=== PATIENT | male | born 1990 | race Two or more races ===

== ENCOUNTER 2021-01-28 19:25 | Emergency (ER) | payer MEDICAID, OTHER ==
[~2021-01-28] VITALS: Ht 175.3 cm; Wt 83.5 kg
[2021-01-28 21:17] VITALS: BP 191/71
== END 2021-01-28 21:47 | disposition home or self-care (01) ==
LOC: ER 19:27
DX: R51.9 Headache, unspecified (principal); R22.0 Localized swelling, mass and lump, head; W18.39XA Other fall on same level, initial encounter; Y93.89 Activity, other specified; Y92.89 Other specified places as the place of occurrence of the external cause; Y99.8 Other external cause status
CPT/HCPCS: 70450; 72125

== ENCOUNTER 2021-07-27 20:51 | Emergency (ER) | payer MEDICAID ==
[~2021-07-27] VITALS: Ht 175.3 cm; Wt 78.0 kg
[2021-07-28 02:07] VITALS: BP 111/54
== END 2021-07-28 02:21 | disposition home or self-care (01) ==
LOC: EDBD 20:51 → ER 20:51
DX: M62.81 Muscle weakness (generalized) (principal)
CPT/HCPCS: 93005

== ENCOUNTER 2025-01-01 00:41 | Emergency (ER) | payer MEDICAID, OTHER ==
[~2025-01-01] VITALS: Ht 175.3 cm; Wt 77.3 kg
[2025-01-01] MEDS: ALBUTEROL SULF 2.5 MG/0.5ML(0.5%) NEB SOLN NEB ONE (01:08)
[2025-01-01] MEDS: IPRATROPIUM BROM 0.5 MG/2.5ML INH SOL NEB ONE (01:08)
--- NOTE | 2025-01-01 01:53 | DVH ---
EXAM: XY CHEST PORTABLE CLINICAL HISTORY: Shortness of breath TECHNIQUE: Single frontal view of the chest WID: COMPARISON: None FINDINGS: Lines and tubes: Prior median sternotomy. Chest: The heart size and pulmonary vasculature is within normal limits. No pleural effusion, pneumothorax, or consolidation. The osseous structures are grossly intact. IMPRESSION: No acute cardiopulmonary abnormality.
[2025-01-01] MEDS ORDERED: ALBU108A5 IN (02:05)
--- NOTE | 2025-01-01 02:05 | ED.PDOC ---
History of Present Illness HPI Comments This patient is a pleasant 34-year-old male who arrives the ED today for evaluation of shortness a breath concerns for several weeks now. Patient denies any history of asthma or intrapulmonary concerns. Patient states that he has felt like he has not been able to take a deep breath and when he does, states he feels like his lungs are restricted. Patient denies any recent chemical or toxin exposure. Patient denies any fever nausea or vomiting. Vital signs were stable on arrival and patient was satting at 98% on room air. Chief Complaint: Shortness of Breath Time Seen by MD: 00:41 Reviewed Notes: Nurses Notes Allergies: Coded Allergies: NO KNOWN ALLERGIES (Unverified , 01/28/21) Information Source: Patient Mode of Arrival: Ambulatory Severity: Mild Timing: Weeks Duration: Intermittent Prehospital treatment: None Past Medical History PAST MEDICAL HISTORY: Denies Surgical History: Denies all surgeries Family History Family History: Reviewed,noncontributory to illness, No family hx of Cancer, No family hx of DM, No family hx of Heart justin, No family hx of HTN, No family hx ofKidney justin, No family hx of Liver justin, No family hx of Lung justin, No family hx of Stroke Social History Smoker: Non-Smoker Alcohol: Denies ETOH Use Drugs: Denies Drug Use Lives In: Home Constitutional: denies: chills, diaphoresis, fatigue, fever, malaise, sweats, weakness, others EENTM: denies: blurred vision, double vision, ear bleeding, ear discharge, ear drainage, ear pain, ear ringing, eye pain, eye redness, hearing loss, mouth pain, mouth swelling, nasal discharge, nose bleeding, nose congestion, nose pain, photophobia, tearing, throat pain, throat swelling, voice changes, others Respiratory: reports: shortness of breath; denies: cough, hemoptysis, orthopnea, SOB at rest, SOB with excertion, stridor, wheezing, others Cardiovascular: denies: chest pain, dizzy spells, diaphoresis, Dyspnea on exertion, edema, irregular heart beat, left arm pain, lightheadedness, palpitations, PND, syncope, others Gastrointestinal: denies: abdomen distended, abdominal pain, blood streaked bowels, constipated, diarrhea, dysphagia, difficulty swallowing, hematemesis, melena, nausea, poor appetite, poor fluid intake, rectal bleeding, rectal pain, vomiting, others Genitourinary: denies: burning, dysuria, flank pain, frequency, hematuria, incontinence, penile discharge, penile sore, pain, testicle pain, testicle swelling, urgency, others Neurological: denies: dizziness, fainting, headache, left sided numbness, left sided weakness, numbness, paresthesia, pre-existing deficit, right sided numbness, right sided weakness, seizure, speech problems, tingling, tremors, weakness, others Musculoskeletal: denies: back pain, gout, joint pain, joint swelling, muscle pain, muscle stiffness, neck pain, others Integumetry: denies: bruises, change in color, change in hair/nails, dryness, laceration, lesions, lumps, rash, wounds, others Allergic/Immunocompromised: denies: Difficulty Healing, Frequent Infections, Hives, Itching, others Hematologic/Lymphatic: denies: anemia, blood clots, easy bleeding, easy bruising, swollen glands, others Endocrine: denies: excessive hunger, excessive sweating, excessive thirst, excessive urination, flushing, intolerance to cold, intolerance to heat, unexplained weight gain, unexplained weight loss, others Psychiatric: denies: anxiety, bipolar disorder, depression, hopeless, panic disorder, schizophrenia, sleepless, suicidal, others Physical Exam General Appearance: Mild Distress (Moderate distress due to shortness a breath concerns and anxiety related to that concern.), Normal HEENT: Normal ENT Inspection, Pharynx Normal, TMs Normal Neck: Full Range of Motion, Non-Tender, Normal, Normal Inspection Respiratory: Chest Non-Tender, Lungs Clear, No Accessory Muscle Use, No Respiratory Distress, Normal Breath Sounds, Other (Unremarkable auscultation bilateral lung escobar.) Cardiovascular: No Edema, No JVD, No Murmur, No Gallop, Normal Peripheral Pulses, Regular Rate/Rhythm Breast Exam: Deferred Gastrointestinal: No Organomegaly, Non Tender, No Pulsatile Mass, Normal Bowel Sounds, Soft Genitalia: Deferred Pelvic: Deferred Rectal: Deferred Extremities: No calf tenderness, Normal capillary refill, Normal inspection, Normal range of motion, Non-tender, No pedal edema Neurologic: Alert, No Motor Deficits, Normal Affect, Normal Mood, No Sensory Deficits Cerebellar Function: NOT DONE Reflexes: NOT DONE Skin: Dry, Normal Color, Warm Lymphatic: No Adenopathy Was a procedure done? Was a procedure done?: No Differential Dx Considerations may include: Pneumonia, asthma, reactive airway disease, pulmonary neoplasm X-Ray, Labs, Meds, VS Vital Signs Date Time Temp Pulse Resp B/P (MAP) Pulse Ox O2 Delivery O2 Flow Rate FiO2 01/01/25 01:08 18 98 Room Air* 0 21 01/01/25 00:59 61 01/01/25 00:42 98.2 63 16 137/82 97 98.2 Current Medications Medications (Trade) Dose Ordered Sig/Floridalma Route Start Time Stop Time Status Last Admin Albuterol (Ventolin Medneb) 2.5 mg ONCE ONCE NEB 01/01/25 01:00 01/01/25 01:01 DC 01/01/25 01:08 Ipratropium [place] (Atrovent Medneb) 0.5 mg ONCE ONCE NEB 01/01/25 01:00 01/01/25 01:01 DC 01/01/25 01:08 Dexamethasone Sodium Phosphate (Decadron Injection) 10 mg ONCE ONCE IM 01/01/25 01:00 01/01/25 01:01 DC 01/01/25 01:55 X-Ray, Labs, Meds, VS Comment All studies performed the ED were evaluated by me personally. Imaging studies were unremarkable for any acute intrapulmonary concerns. Patient had good relief of symptoms status post medication dispensed. Advised patient that if his symptoms continue, he will need to follow up with the primary care provider for continued evaluation and management. Time of 1ST Reevaluation: 02:03 Reevaluation 1ST: Improved Consultation: PCP Patient Education/Counseling: Diagnosis, Treatment Family Education/Counseling: Diagnosis, Treatment SEPSIS Sepsis Screen Date sepsis recognized/suspect: Jan 01, 2025 Time Sepsis recognized/suspect: 004 Recent Procedure: No On Antibiotic Therapy: No Respiratory Rate >20: No Heart Rate >90: No Temp<36 C (96.8 F) or >38.3 C: No SBP <90 or MAP <65 mmHG: No New Acute Mental Status Change: No Is the patient on CPAP, BIPAP,: No Physician Orders Chest Portable (01/01/25 00:53) Electrocardigram (01/01/25 01:05) Electrocardigram (01/01/25 04:05) Vital Signs Date Time Temp Pulse Resp B/P (MAP) Pulse Ox O2 Delivery O2 Flow Rate FiO2 01/01/25 01:08 18 98 Room Air* 0 21 01/01/25 00:59 61 01/01/25 00:42 98.2 63 16 137/82 97 98.2 Medications Medications Dose Ordered Sig/Flor[place]ma Route Start Time Stop Time Status Last Admin Dose Admin Albuterol 2.5 mg ONCE ONCE NEB 01/01/25 01:00 01/01/25 01:01 DC 01/01/25 01:08 Dexamethasone Sodium Phosphate 10 mg ONCE ONCE IM 01/01/25 01:00 01/01/25 01:01 DC 01/01/25 01:55 Ipratropium [place] 0.5 mg ONCE ONCE NEB 01/01/25 01:00 01/01/25 01:01 DC 01/01/25 01:08 Departure 1 Departure Time of Disposition: 02:03 Impression: Primary Impression: Shortness of breath Disposition: 01 HOME / SELF CARE / HOMELESS Condition: Stable Additional Instructions: Advised patient utilize medication as needed and additionally, patient should follow up with the primary care provider for discussions related to today's v isit and shortness a breath concerns. e-Prescriptions Albuterol Sulfate (Albuterol Sulfate Hfa) 108 Mcg/Act Aer 108 MCG IN Q4HP PRN, #1 AER Prov: GABE DYER PAC 01/01/25 Discharged With: Self, Friend Critical Care Note Critical Care Time?: No Stability Stability form required: No Heart Score Heart Score: Heart Score Response (Comments) Value History N/A 0 EKG N/A 0 Age N/A 0 Risk Factors N/A 0 Troponin N/A 0 Total 0 GABE DYER PAC Jan 01, 2025 02:05
[2025-01-01 02:30] VITALS: BP 128/80; PULSE 85; RESP 20; TEMP 98; O2SAT 97
--- NOTE | 2025-01-03 10:27 | ECG ---
[facility] Test Date: 2025-01-01 Test Time: 00:59:17 Pat Name: AKIRA MCADAMS Department: Room: Gender: M Head Of Geography: CAROLIN : 1990 Requested By: GABE DYER Order Number: [id number] Reading MD: Vipul Manrique Measurements Intervals [place] Rate: 61 P: 60 IN: 137 QRS: 72 QRSD: 92 T: 46 QT: 404 QTc: 407 Interpretive Statements Sinus rhythm Probable anteroseptal infarct, old Electronically Signed On 01-03-2025 22:52:41 PDT by Vipul Manrique Please click the below link to view image of tracing.
== END 2025-01-01 02:41 | disposition home or self-care (01) ==
LOC: ER 00:41
DX: R06.02 Shortness of breath (principal)
CPT/HCPCS: 71045; 93005; 94640; 96372; 99283; J1100